=== PATIENT | male | born 1940 | race Two or more races ===

== ENCOUNTER 2017-05-05 22:59 | Emergency (ER) | payer OTHER ==
[~2017-05-05] VITALS: Ht 167.6 cm; Wt 65.8 kg
[2017-05-05 23:05] VITALS: BP 153/82
== END 2017-05-06 00:01 | disposition left against medical advice (07) ==
LOC: ER 23:05
DX: R06.02 Shortness of breath (principal); Z53.21 Procedure and treatment not carried out due to patient leaving prior to being seen by health care provider